=== PATIENT | female | born 1970 | race Caucasian/White ===

== ENCOUNTER 2024-04-15 21:25 | Emergency (ER) | payer OTHER ==
[2024-04-15 21:31] VITALS: TEMP 98.2; BMI 40.5
[2024-04-16] MEDS ORDERED: GABAPENTIN 300 MG CAPSULE ONE (00:11)
[2024-04-16] MEDS ORDERED: ACETAMINOPHEN 325 MG TABLET (FP) ONE (00:12)
[2024-04-16] MEDS: GABAPENTIN 300 MG CAPSULE PO ONE (00:13)
[2024-04-16] MEDS: ACETAMINOPHEN 325 MG TABLET (FP) PO ONE (00:13)
[2024-04-16 00:50] LABS: BASO % 0.7 % (0-2.0); EOS % 2.4 % (0-4.5); HEMATOCRIT 42.2 % (32.4-45.2); HEMOGLOBIN 14.1 GM/dL (10.7-15.3); LYMPH % 22.5 % (8-40); MCH 28.2 pg (25.7-33.7); MCHC 33.5 g/dl (32.0-36.0); MEAN CELL VOLUME 84.3 fl (80-96); MONO % 6.3 % (3.8-10.2); NEUT % 68.1 % (42.8-82.8); PLATELET COUNT 293 10^3/uL (134-434); RDW 15.8 % (11.6-15.6); WHITE BLOOD COUNT 13.5 K/mm3 (4.0-10.0)
[2024-04-16] MEDS: ACETAMINOPHEN 1000 MG/100 ML BAG IVPB ONE (00:55)
[2024-04-16 01:49] LABS: POTASSIUM 3.7 mmol/L (3.5-5.1)
[2024-04-16 01:51] LABS: ALBUMIN 3.4 g/dl (3.4-5.0); CALCIUM 9.1 mg/dL (8.5-10.1)
[2024-04-16 01:52] LABS: BLOOD UREA NITROGEN 11.4 mg/dL (7-18)
[2024-04-16 01:55] LABS: CREATININE 0.7 mg/dL (0.55-1.3)
[2024-04-16 01:56] LABS: BILIRUBIN,TOTAL 0.4 mg/dL (0.2-1); TOT PROT 7.3 g/dl (6.4-8.2)
[2024-04-16 02:28] LABS: INR 1.04 (0.83-1.09); PROTHROMBIN TIME (PATIENT) 11.7 SEC (9.7-13.0)
[2024-04-16 02:30] LABS: ACTIVATED PTT 34.7 SECONDS (25.2-36.5)
[2024-04-16 12:24] VITALS: BP 109/52; PULSE 89; RESP 18
== END 2024-04-16 12:25 | disposition home or self-care (01) ==
LOC: JER 21:25
DX: M25.552 Pain in left hip (principal); R10.2 Pelvic and perineal pain; W01.0XXA Fall on same level from slipping, tripping and stumbling without subsequent striking against object, initial encounter
CPT/HCPCS: 36415; 72170-TC-FY; 73562-TC-LT-FY; 73610-TC-LT-FY; 73630-TC-LT; 80053; 85025; 85610; 85730; 86850; 86900; 86901; 99284-25